=== PATIENT | male | born 1950 | race Caucasian/White ===

== ENCOUNTER 2024-06-10 20:16 | Emergency (ER) | payer MEDICARE, OTHER ==
[~2024-06-10] VITALS: Ht 182.9 cm; Wt 68.1 kg
[2024-06-10 20:20] VITALS: BP 142/95; PULSE 89; RESP 15; O2SAT 100
[2024-06-10 20:56] VITALS: TEMP 98.2
[2024-06-10] MEDS: ondansetron 4mg rapidly disintigrating tab PO ONE (20:57)
[2024-06-10] MEDS: acetaminophen 325mg tablet PO ONE (20:58)
[2024-06-10] MEDS: ibuprofen tablet 400 MG TABLET PO ONE (20:58)
[2024-06-10] MEDS: amoxicillin 250mg capsule PO ONE (21:00)
== END 2024-06-10 21:02 | disposition home or self-care (01) ==
LOC: ER 20:17
DX: K11.5 Sialolithiasis (principal); I10 Essential (primary) hypertension; F12.90 Cannabis use, unspecified, uncomplicated; Z90.49 Acquired absence of other specified parts of digestive tract
CPT/HCPCS: 99284

== ENCOUNTER 2024-09-10 17:25 | Emergency (ER) | payer MEDICARE, OTHER ==
[~2024-09-10] VITALS: Ht 182.9 cm; Wt 91.2 kg
[2024-09-10 17:32] VITALS: BP 176/109; PULSE 86; O2SAT 98
[2024-09-10 18:05] LABS: MEAN PLATELET VOLUME 8.4 FL (7.4-10.4); RED CELL DISTRIBUTION WIDTH 14.9 % (11.5-14.5)
[2024-09-10 18:16] LABS: CREATININE 1.02 MG/DL (0.60-1.10); TOTAL CARBON DIOXIDE 24.7 MMOL/L (24-32); eCRCL 68 ML/MIN; eGFR 71 ML/MIN
--- NOTE | 2024-09-10 18:49 | Physician Documentation ---
History of Present Illness ~ Chief Complaint: Abdominal Pain Stated Complaint: ABD PAIN Time Seen by MD: 18:34 Primary Medical Doctor: kobe WILCOX Patient is seen today with complaints of unusual bowel movements over the last week or so and also patient states he has now been constipated the last three days and only passing very small hard stool. Patient is concerned for bowel obs truction. Patient denies any chest pain or shortness of breath or severe abdominal pain or nausea, vomiting, diarrhea or fever or chills. Patient has no other concern or complaint at this time. Medication Reconciliation Allergies: Coded Allergies: No Known Allergies (Unverified , 05/22/14) Past Medical History Past Medical History: Hypertension, *CANCER*, Lymphoma Past Surgical History: cholecystectomy, orthopedic surgeries Alcohol Use: None Drug Use: marijuana Lives with: Spouse Lives In: Home Review of Systems Constitutional: Denies: chills, fever, weakness Eyes: Denies: pain, blurred vision ENT: Denies: ear pain, nose pain, throat pain, mouth pain Respiratory: Denies: cough, shortness of breath Cardiovascular: Denies: chest pain, palpitations Gastrointestinal: Denies: abdominal pain, nausea, vomiting Genitourinary: Denies: burning, dysuria Male Genitalia: Denies: penile discharge, testicular pain Neurological: Denies: headache, dizziness Musculoskeletal: Denies: pain, swelling Integumentary: Denies: rash, lesions Allergic/Immunologic: Denies: hives, itching Hematologic/Lymphatic: Denies: no symptoms reported Psychiatric: Denies: depression, anxiety Physical Exam Vital Signs: Temperature: 98.8, Source: Temporal, Heart Rate: 86, Respiratory Rate: 16, BP: 176/109, Pulse Oximetry: 98, Weight: 91.150 Oxygen Flow Rate: 0 Physical Exam General: Awake and Alert, no acute distress. HEENT: Conjunctiva pink, Sclera clear, Mucus Membranes moist. Neck: Supple without masses and tenderness. Resp: Unlabored. Lungs clear to auscultation bilaterally. Heart: Regular Rate and rhythm, normal S1 and S2 without murmur, rub or gallop. Abdomen: Soft and non tender no organomegaly, nondistended, no rebound tenderness and no guarding. Extremities: No cyanosis,clubbing or edema. Skin: Warm and Dry. Progress Results/Orders Results/Orders Vital Signs 09/10/24 17:32 Temp 98.8 Pulse 86 Resp 16 B/P (MAP) 176/109 Pulse Ox 98 O2 Flow Rate 0 Laboratory Tests Test 09/10/24 17:48 White Blood Count 7.8 Red Blood Count 5.19 Hemoglobin 15.1 Hematocrit 44.9 Mean Corpuscular Volume 86.6 Mean Corpuscular Hemoglobin 29.0 Mean Corpuscular Hemoglobin Concent 33.5 Red Cell Distribution Width 14.9 H Platelet Count 228 Mean Platelet Volume 8.4 Neutrophils (%) (Auto) 46.1 Lymphocytes (%) (Auto) 40.0 Monocytes (%) (Auto) 8.5 Eosinophils (%) (Auto) 4.6 Basophils (%) (Auto) 0.8 Neutrophils # (Auto) 3.6 Lymphocytes # (Auto) 3.1 Monocytes # (Auto) 0.7 Eosinophils # (Auto) 0.4 Basophils # (Auto) 0.1 CBC Comment Sodium Level 139 Potassium Level 3.8 Chloride Level 105 Carbon Dioxide Level 24.7 Anion Gap 9 Blood Urea Nitrogen 20 H Creatinine 1.02 Estimated GFR/1.73 m2 71 BUN/Creatinine Ratio 19.6 Glucose Level 98 Calcium Level 8.9 Total Bilirubin 0.5 Aspartate Amino Transf (AST/SGOT) 24 Alanine Aminotransferase (ALT/SGPT) 31 Alkaline Phosphatase 85 Total Protein 7.0 Albumin 4.1 Globulin 2.9 Albumin/Globulin Ratio 1.4 Lipase 51 Chemistry Comments Medical Decision Making Findings Patient is seen today with complaints of unusual bowel movements over the last week or so and also patient states he has now been constipated the last three days and only passing very small hard stool. Patient is concerned for bowel obstruction. Patient denies any chest pain or shortness of breath or severe abdominal pain or nausea, vomiting, diarrhea or fever or chills. Patient has no other concern or complaint at this time. Patient's labs and blood work was largely unremarkable and patient's history and physical exam findings are rather benign. Patient was given prescription for senna tablets and MiraLax to be taken as prescribed. Patient will follow up with primary care in 1-3 days if no better as needed sooner. Patient will return to ED with any worsening, concerning or changing symptoms. Departure Disposition: HOME / SELF CARE / HOMELESS Impression: Primary Impression: Constipation Qualified Codes: K59.00 - Constipation, unspecified Condition: Stable Discharge Instructions: Constipation, Adult, [id number] Additional Instructions: Patient's labs and blood work was largely unremarkable and patient's history and physical exam findings are rather benign. Patient was given prescription for senna tablets and MiraLax to be taken as prescribed. Patient will follow up wit h primary care in 1-3 days if no better as needed sooner. Patient will return to ED with any worsening, concerning or changing symptoms. Referrals: NO PRIMARY CARE PROVIDER (PCP) Prescriptions Polyethylene Glycol 3350 (Miralax) 17 Gram/Dose Powder 17 GM PO BID for constipation, #255 GM 0 Refills dissolve in water Prov: MATIAS BOLTON 09/10/24 Sennosides/Docusate Sodium (Senna Plus 8.6-50 mg Tablet) 8.6 Mg-50 Mg Tablet 2 TAB PO TID for 7 Days, #42 TAB 0 Refills Prov: MATIAS BOLTON 09/10/24 Additional Comment Additional Comment I did offer admission to patient however patient declined. Signature Scribe Signature: No scribe Attestation: No scribe MATIAS BOLTON Sep 10, 2024 18:49
[2024-09-10 18:52] VITALS: RESP 16
[2024-09-10] MEDS ORDERED: SENN-302 PO (18:55)
[2024-09-10] MEDS ORDERED: POLY119P2 PO (18:55)
[2024-09-10 19:02] VITALS: TEMP 98.8
== END 2024-09-10 19:03 | disposition home or self-care (01) ==
LOC: ER 17:25
DX: K59.00 Constipation, unspecified (principal); F12.90 Cannabis use, unspecified, uncomplicated; I10 Essential (primary) hypertension; Z90.49 Acquired absence of other specified parts of digestive tract
CPT/HCPCS: 36415; 80053; 83690; 85025; 99283